=== PATIENT | male | born 1990 | race Two or more races ===

== ENCOUNTER 2023-03-07 11:27 | Inpatient (IN) | payer OTHER ==
[~2023-03-07] VITALS: Ht 172.7 cm; Wt 72.6 kg
[2023-03-14] MEDS ORDERED: HYOSCYAMINE0.125 M1 SL (07:58)
[2023-03-14] MEDS ORDERED: OXYC1TAB9 PO (07:59)
[2023-03-14] MEDS ORDERED: GABAPENTIN300 MG PO (07:59)
[2023-03-14] MEDS ORDERED: INTESTINEX680 M1 PO (07:59)
== END 2023-03-14 10:33 | disposition home or self-care (01) | DRG 330 ==
LOC: SURH 03-11 06:57 → O/R 03-11 06:57 → SURH 03-11 07:00 → O/R 03-11 14:49 → SURH 03-11 14:51
PROVIDERS: ADMIT Surgery; ATTEND Surgery
PROC: 0DBP4ZZ Excision of Rectum, Percutaneous Endoscopic Approach (ICD-10-PCS; 2023-03-11)
PROC: 0DJD8ZZ Inspection of Lower Intestinal Tract, Via Natural or Artificial Opening Endoscopic (ICD-10-PCS; 2023-03-11)
PROC: 8E0W4CZ Robotic Assisted Procedure of Trunk Region, Percutaneous Endoscopic Approach (ICD-10-PCS; 2023-03-11)
PROC: 0DTN4ZZ Resection of Sigmoid Colon, Percutaneous Endoscopic Approach (ICD-10-PCS; principal; 2023-03-11 07:00)
DX: K57.20 Diverticulitis of large intestine with perforation and abscess without bleeding (principal); L76.32 Postprocedural hematoma of skin and subcutaneous tissue following other procedure; R10.9 Unspecified abdominal pain; R19.4 Change in bowel habit
CPT/HCPCS: 44207; 44213; 45300; S2900